=== PATIENT | male | born 2000 | race Caucasian/White ===

== ENCOUNTER 2022-12-18 02:13 | Emergency (ER) | payer OTHER, SELFPAY ==
[2022-12-18 02:15] VITALS: BP 113/71; PULSE 62; RESP 15; TEMP 36.6; O2SAT 96; BMI 20.3
[2022-12-18 02:17] VITALS: PULSE 74; RESP 15; TEMP 36.8
--- NOTE | 2022-12-18 02:35 | EX.ED.DYSGE1 ---
HPI History of Present Illness Chief Complaint: ETOH Intox Informant: patient and EMS Narrative Narrative: Patient presents from [facility] via EMS secondary to vomiting after consuming alcohol. Patient states he was drinking tonight became nauseated and has vomited multiple times. He states he had been drinking every weekend, however has really not had much to drink in the past month and thinks he just had too much tonight. [facility] Medical History ADHD Allergy/AdvReac Type Severity Reaction Status Date / Time cephalexin [From Keflex] Allergy NEEDS Verified 12/18/22 02:17 FOLLOW-UP Social History Smoking Status: Never smoker ROS ROS ED Constitutional Constitutional ED: Denies chills or fever(s) Eyes Eyes: Denies change in vision or discharge from eye(s) ENT ENT ED: Denies discharge from eye(s), rhinorrhea or sore throat Cardiovascular Cardiovascular: Denies chest pain or palpitations Respiratory/Chest Respiratory/Chest: Denies cough or dyspnea Gastrointestinal Gastrointestinal: Reports nausea and vomiting; Denies abdominal pain or diarrhea Genitourinary Genitourinary ED: Denies dysuria Musculoskeletal Musculoskeletal: Denies back pain or extremity pain Integumentary Denies Abrasions or rash Neurologic Neurologic: Denies headache(s) or weakness Psychiatric Psychiatric: Denies anxiety or depression Allergic/Immunologic Allergic/Immunologic ED: Denies lip swelling or urticaria EXAM Physical Exam Narrative Exam Narrative: Patient is alert and talkative. Const Vital Signs: 12/18/22 02:15 12/18/22 02:17 12/18/22 06:39 Temperature 97.8 F 98.2 F Temperature Source Temporal Temporal Pulse Rate 62 74 107 H Respiratory Rate 15 15 16 Blood Pressure 113/71 109/68 Blood Pressure Mean 85 81 Pulse Ox 96 97 Oxygen Delivery Method Room Air Room Air Positive well nourished and well developed General Appearance ED: well developed HEENT Reports moist mucous membranes Eyes PERRL and EOMs intact bilaterally Chest Wall inspection of chest normal and palpation of chest normal Resp normal respiratory effort and clear to auscultation bilaterally Cardio regular rate and regular rhythm GI non-tender Auscultation: hypoactive bowel sounds Palpation: soft Extremity normal to inspection Neuro oriented x3 and no sensory deficits noted Motor Exam: strength 5/5 throughout Psych Mood & Affect: anxious Skin no rashes or lesions noted MDM MDM MDM Narrative Medical decision making narrative: Patient was placed on roving hauler. He was given a liter IV fluids and Zofran. Treatment and Re-Evaluation Narrative: Patient slept well in the emergency room. At this time patient is up and ambulatory to the restroom without difficulty. He is tolerating p.o. fluids. He will be discharged back to [facility]. Discharge Plan Triage Chief Complaint: ETOH Intox ED Provider: Edith Dueñas Dx/Rx/DC Orders Clinical Impression: Vomiting Instructions: ED Alcohol Intoxication, ED Vomiting (Adult) Referrals: [place] [Group of Physicians] - As Needed Disposition Disposition: Home, Self Care
[2022-12-18] MEDS: 0.9% Normal Saline 1,000 ML 1000 ML IV (02:47)
[2022-12-18] MEDS: Ondansetron 4 MG/2 ML Vial IV (02:47)
[2022-12-18 06:39] VITALS: BP 109/68; PULSE 107; RESP 16; O2SAT 97
[2022-12-18 06:49] VITALS: BP 118/70; PULSE 78; RESP 15; O2SAT 99
== END 2022-12-18 06:50 | disposition home or self-care (01) ==
PROVIDERS: Emergency Provider Emergency Medicine; Referring Provider Emergency Medicine; Visit Provider Emergency Medicine
DX: R11.2 Nausea with vomiting, unspecified (principal); F90.9 Attention-deficit hyperactivity disorder, unspecified type
CPT/HCPCS: 96361; 96374; 99285; J7030; A4216; J2405